=== PATIENT | female | born 1935 | race Caucasian/White ===

== ENCOUNTER 2021-03-02 16:45 | Inpatient (IN) ==
[2021-03-02 17:37] LABS: Basophils # 0.1 10*3/uL (0.0-0.2); Basophils % 0.3 % (0.0-0.8); Eosinophils # 0.4 10*3/uL (0.0-0.87); Eosinophils % 2.1 % (0.00-10.9); Hematocrit 37.7 VOL% (35.7-47.0); Hemoglobin 12.2 GM/DL (12.0-16.0); Immature Granulocytes % 1.4 %; Immature Granulocytes Absolute 0.26 #; Lymphocytes # 0.6 10*3/uL (1.4-4.0); Lymphocytes % 2.9 % (21.3-54.2); Mean Corpuscular HGB Conc 32.4 GM/DL (32-36); Mean Corpuscular Volume 82.1 FL (87-102); Mean Platelet Volume 10.7 FL (9.6-12.0); Monocytes % 3.7 % (1.7-12.7); Neutrophils % 89.6 % (38.7-73.9); Platelet Count 205 T/CUMM (130-400); Red Blood Count 4.59 MC/CUMM (3.8-5.5); White Blood Count 19.1 T/CUMM (4-12)
[2021-03-02 17:52] LABS: Bilirubin,Urine Negative (Negative); Blood, Urine Small mg/dL (Negative); Glucose,Urine (UA) Negative (Negative); Ketones,Urine Negative (Negative); Mucus,Urine Occasional /LPF (Occasional); Nitrite,Urine Negative (Negative); Protein,Urine 30 MG/DL; RBC,Urine 23 /HPF (0-4); Squamous Epithelial Cell,Urine Occasional /HPF (0-10); Urine Appearance CLEAR (Clear); Urine Color Yellow (Yellow); Urine Specific Gravity 1.015 (1.001-1.035); Urine Urobilinogen < 2.0 EU/DL (0.2-1.0)
[2021-03-02 17:55] LABS: Albumin 2.2 G/DL (3.4-5.0); Bilirubin,Total 1.1 MG/DL (0.2-1.0); Calcium 8.4 MG/DL (8.5-10.1); Osmolality,Calculated 284.4 MOS/KG (273-304); Potassium 3.9 MMOL/L (3.5-5.1); Total Protein 5.1 G/DL (6.4-8.2)
[2021-03-02 19:36] LABS: Band Neutrophils 1 % (0-10); Eosinophils 4 % (0-10); Hypochromasia 1+; Lymphocytes 1 % (20-55); Microcytosis 1+; Segmented Neutrophils 94 % (50-85); Total Cells Counted 100
[2021-03-02 19:37] LABS: Platelet Estimate Normal
[2021-03-02] MEDS ORDERED: guaiFENesin/DM ER 600-30 MG TABLET PO PRN (19:59)
[2021-03-02] MEDS ORDERED: DEXTROSE 50% 25 GM/50 ML VIAL IV PRN (19:59)
[2021-03-02] MEDS ORDERED: GLUCAGON 1 MG VIAL IM PRN (19:59)
[2021-03-02] MEDS: AZITHROMYCIN INJ 250 MG in SODIUM CHLORIDE 0.9% 250 ML IV SCH (20:45)
[2021-03-02] MEDS: ONDANSETRON 4 MG/2 ML VIAL IV PRN (23:30)
[2021-03-02] MEDS: ENOXAPARIN 40 MG/0.4 ML SYRINGE SUBCUT SCH (23:42)
[2021-03-02] MEDS: NITROFURANTOIN MACRO/MONO 100 MG CAPSULE PO SCH (23:52)
[2021-03-03 06:52] LABS: Basophils % 0.3 % (0.0-0.8); Eosinophils # 1.4 10*3/uL (0.0-0.87); Eosinophils % 9.5 % (0.00-10.9); Hematocrit 33.8 VOL% (35.7-47.0); Hemoglobin 10.8 GM/DL (12.0-16.0); Immature Granulocytes % 1.1 %; Immature Granulocytes Absolute 0.16 #; Lymphocytes # 1.4 10*3/uL (1.4-4.0); Lymphocytes % 9.9 % (21.3-54.2); Mean Corpuscular Volume 83.9 FL (87-102); Mean Platelet Volume 11.5 FL (9.6-12.0); Monocytes % 5.8 % (1.7-12.7); Neutrophils % 73.4 % (38.7-73.9); Platelet Count 187 T/CUMM (130-400); Red Blood Count 4.03 MC/CUMM (3.8-5.5); White Blood Count 14.4 T/CUMM (4-12)
[2021-03-03 07:21] LABS: Osmolality,Calculated 277.7 MOS/KG (273-304); Potassium 4.1 MMOL/L (3.5-5.1); Thyroid Stimulating Hormone 1.34 uIU/ml (0.358-3.74)
[2021-03-03] MEDS ORDERED: MECLIZINE 25 MG TABLET PO PRN (10:53)
[2021-03-03] MEDS: METOPROLOL SUCCINATE XL 25 MG TABLET PO SCH (12:03)
[2021-03-03] MEDS: LEVOTHYROXINE 50 MCG TABLET PO SCH (12:03)
[2021-03-03] MEDS: PANTOPRAZOLE 40 MG TABLET PO SCH (12:03)
[2021-03-03] MEDS: NITROFURANTOIN MACRO/MONO 100 MG CAPSULE PO SCH ×2 (12:03→21:23)
[2021-03-03] MEDS: AZITHROMYCIN INJ 250 MG in SODIUM CHLORIDE 0.9% 250 ML IV SCH (21:20)
[2021-03-03] MEDS: ESTRADIOL 10 MCG VAG SCH (21:23)
[2021-03-03] MEDS: ENOXAPARIN 40 MG/0.4 ML SYRINGE SUBCUT SCH (21:23)
[2021-03-03] MEDS: SUMAtriptan 25 MG TABLET PO PRN (21:23)
[2021-03-04] MEDS: LEVOTHYROXINE 50 MCG TABLET PO SCH (06:21)
[2021-03-04] MEDS ORDERED: LEVOTHYROXINE 50 MCG TABLET PO SCH (06:30)
[2021-03-04] MEDS: SUMAtriptan 25 MG TABLET PO PRN (08:20)
[2021-03-04] MEDS: METOPROLOL SUCCINATE XL 25 MG TABLET PO SCH (08:20)
[2021-03-04] MEDS: PANTOPRAZOLE 40 MG TABLET PO SCH (08:20)
[2021-03-04] MEDS: NITROFURANTOIN MACRO/MONO 100 MG CAPSULE PO SCH ×2 (08:20→21:34)
[2021-03-04] MEDS ORDERED: ESCITALOPRAM 10 MG TABLET PO SCH (09:00)
[2021-03-04] MEDS ORDERED: LORazepam 1 MG TABLET PO ONE (14:00)
[2021-03-04] MEDS: AZITHROMYCIN 250 MG TABLET PO SCH (16:48)
[2021-03-04] MEDS: ESTRADIOL 10 MCG VAG SCH (21:33)
[2021-03-04] MEDS: ENOXAPARIN 40 MG/0.4 ML SYRINGE SUBCUT SCH (21:34)
[2021-03-05] MEDS: LEVOTHYROXINE 50 MCG TABLET PO SCH (05:57)
[2021-03-05 08:43] LABS: Basophils % 0.3 % (0.0-0.8); Eosinophils # 2.2 10*3/uL (0.0-0.87); Eosinophils % 17.7 % (0.00-10.9); Hematocrit 34.9 VOL% (35.7-47.0); Hemoglobin 10.9 GM/DL (12.0-16.0); Immature Granulocytes % 0.9 %; Immature Granulocytes Absolute 0.12 #; Lymphocytes # 1.2 10*3/uL (1.4-4.0); Lymphocytes % 9.6 % (21.3-54.2); Mean Corpuscular HGB Conc 31.2 GM/DL (32-36); Mean Corpuscular Volume 84.9 FL (87-102); Mean Platelet Volume 11.6 FL (9.6-12.0); Monocytes % 5.1 % (1.7-12.7); Neutrophils % 66.4 % (38.7-73.9); Platelet Count 174 T/CUMM (130-400); Red Blood Count 4.11 MC/CUMM (3.8-5.5); Red Cell Distribution Width 14.5 % (9.3-17.3); White Blood Count 12.7 T/CUMM (4-12)
[2021-03-05 08:55] LABS: Calcium 8.2 MG/DL (8.5-10.1); Osmolality,Calculated 278.8 MOS/KG (273-304)
[2021-03-05 08:59] LABS: Risk Ratio 6.65; VLDL CHOLESTEROL 25.6 MG/DL
[2021-03-05] MEDS: METOPROLOL SUCCINATE XL 25 MG TABLET PO SCH (09:00)
[2021-03-05] MEDS: NITROFURANTOIN MACRO/MONO 100 MG CAPSULE PO SCH ×2 (09:01→21:14)
[2021-03-05] MEDS: ASPIRIN CHEW 81 MG TABLET PO SCH (09:01)
[2021-03-05] MEDS: AZITHROMYCIN 250 MG TABLET PO SCH (09:01)
[2021-03-05] MEDS: PANTOPRAZOLE 40 MG TABLET PO SCH (09:01)
[2021-03-05 09:09] LABS: Atypical Lymphocytes Few; Eosinophils 17 % (0-10); Hypochromasia 1+; Lymphocytes 11 % (20-55); Microcytosis 1+; Segmented Neutrophils 69 % (50-85); Total Cells Counted 100
[2021-03-05 09:10] LABS: Ovalocytes Slight; Platelet Estimate Adequate
[2021-03-05] MEDS ORDERED: SODIUM CHLORIDE 0.45% 1,000 ML IV SCH (16:00)
[2021-03-05] MEDS: ONDANSETRON 4 MG/2 ML VIAL IV PRN ×2 (16:54→23:53)
[2021-03-05] MEDS: CLINDAMYCIN INJ 600 MG/50 ML PREMIX IV SCH (16:55)
[2021-03-05] MEDS: ATORVASTATIN 40 MG TABLET PO SCH (21:14)
[2021-03-05] MEDS: ENOXAPARIN 40 MG/0.4 ML SYRINGE SUBCUT SCH (21:15)
[2021-03-05] MEDS: ESTRADIOL 10 MCG VAG SCH (23:44)
[2021-03-06] MEDS: CLINDAMYCIN INJ 600 MG/50 ML PREMIX IV SCH ×3 (01:03→17:28)
[2021-03-06 06:33] LABS: Basophils % 0.3 % (0.0-0.8); Eosinophils # 1.9 10*3/uL (0.0-0.87); Eosinophils % 13.6 % (0.00-10.9); Hematocrit 32.3 VOL% (35.7-47.0); Hemoglobin 10.1 GM/DL (12.0-16.0); Immature Granulocytes % 0.9 %; Immature Granulocytes Absolute 0.12 #; Lymphocytes # 1.4 10*3/uL (1.4-4.0); Lymphocytes % 10.3 % (21.3-54.2); Mean Corpuscular HGB Conc 31.3 GM/DL (32-36); Mean Corpuscular Volume 84.3 FL (87-102); Monocytes % 5.1 % (1.7-12.7); Neutrophils % 69.8 % (38.7-73.9); Platelet Count 188 T/CUMM (130-400); Red Blood Count 3.83 MC/CUMM (3.8-5.5); Red Cell Distribution Width 14.2 % (9.3-17.3); White Blood Count 13.8 T/CUMM (4-12)
[2021-03-06 06:47] LABS: Band Neutrophils 1 % (0-10); Eosinophils 13 % (0-10); Hypochromasia 1+; Lymphocytes 10 % (20-55); Microcytosis 1+; Segmented Neutrophils 70 % (50-85); Total Cells Counted 100
[2021-03-06 06:48] LABS: Ovalocytes Slight; Platelet Estimate Adequate
[2021-03-06] MEDS: LEVOTHYROXINE 50 MCG TABLET PO SCH (07:00)
[2021-03-06 07:34] LABS: Calcium 8.5 MG/DL (8.5-10.1); Osmolality,Calculated 279.8 MOS/KG (273-304); Potassium 4.3 MMOL/L (3.5-5.1)
[2021-03-06] MEDS: PANTOPRAZOLE 40 MG TABLET PO SCH (10:11)
[2021-03-06] MEDS: CLOPIDOGREL 75 MG TABLET PO SCH (10:11)
[2021-03-06] MEDS: METOPROLOL SUCCINATE XL 25 MG TABLET PO SCH (10:11)
[2021-03-06] MEDS: ASPIRIN CHEW 81 MG TABLET PO SCH (10:11)
[2021-03-06] MEDS: NITROFURANTOIN MACRO/MONO 100 MG CAPSULE PO SCH ×2 (10:11→20:58)
[2021-03-06] MEDS: ATORVASTATIN 40 MG TABLET PO SCH (20:59)
[2021-03-06] MEDS ORDERED: GABAPENTIN 100 MG CAPSULE PO SCH (21:00)
[2021-03-06] MEDS: ENOXAPARIN 40 MG/0.4 ML SYRINGE SUBCUT SCH (21:00)
[2021-03-06] MEDS: ESTRADIOL 10 MCG VAG SCH (22:44)
[2021-03-07] MEDS: CLINDAMYCIN INJ 600 MG/50 ML PREMIX IV SCH ×2 (00:32→09:40)
[2021-03-07] MEDS: LEVOTHYROXINE 50 MCG TABLET PO SCH (06:21)
[2021-03-07] MEDS: CLOPIDOGREL 75 MG TABLET PO SCH (09:40)
[2021-03-07] MEDS: METOPROLOL SUCCINATE XL 25 MG TABLET PO SCH (09:40)
[2021-03-07] MEDS: NITROFURANTOIN MACRO/MONO 100 MG CAPSULE PO SCH (09:40)
[2021-03-07] MEDS: ASPIRIN CHEW 81 MG TABLET PO SCH (09:40)
[2021-03-07] MEDS: PANTOPRAZOLE 40 MG TABLET PO SCH (10:31)
[2021-03-07 12:12] VITALS: BP 100/53
== END 2021-03-07 12:31 | DRG 64 ==
LOC: EDUNIT# → EDBD → N.ED 16:45 → N.EDINP 16:45 → SUATTDRO 19:59 → N.EDINP 21:55 → N.5E 22:56 → SUATTDRO 03-06 10:44
PROVIDERS: ADMIT Internal Medicine; ATTEND Internal Medicine

== ENCOUNTER 2021-03-11 14:07 | Inpatient (IN) ==
[2021-03-11 15:06] LABS: Basophils % 0.2 % (0.0-0.8); Eosinophils # 0.8 10*3/uL (0.0-0.87); Eosinophils % 6.8 % (0.00-10.9); Hematocrit 18.3 VOL% (35.7-47.0); Immature Granulocytes % 4.2 %; Lymphocytes # 3.4 10*3/uL (1.4-4.0); Lymphocytes % 28.8 % (21.3-54.2); Mean Corpuscular HGB Conc 31.1 GM/DL (32-36); Mean Corpuscular Volume 85.5 FL (87-102); Mean Platelet Volume 11.5 FL (9.6-12.0); Monocytes % 10.4 % (1.7-12.7); NRBC # 0.05 10*3/uL; Neutrophils % 49.6 % (38.7-73.9); Platelet Count 301 T/CUMM (130-400); Red Blood Count 2.14 MC/CUMM (3.8-5.5)
[2021-03-11 15:09] LABS: Hemoglobin 5.7 GM/DL (12.0-16.0)
[2021-03-11] MEDS ORDERED: SODIUM CHLORIDE 0.9% 1,000 ML IV PRN ×2 (15:10→18:00)
[2021-03-11 15:16] LABS: Alanine Aminotransferase 30 U/L (13-56); Albumin 1.4 G/DL (3.4-5.0); Alkaline Phosphatase 39 U/L (45-117); Amylase 18 U/L (25-115); Aspartate Amino Transferase 23 U/L (0-37); Bilirubin,Total < 0.39 MG/DL (0.2-1.0); Blood Urea Nitrogen 52 MG/DL (7-18); Calcium 9.2 MG/DL (8.5-10.1); Carbon Dioxide 31 MMOL/L (21-32); Glucose 148 MG/DL (74-106); Osmolality,Calculated 293.5 MOS/KG (273-304); Potassium 4.7 MMOL/L (3.5-5.1); Sodium 139 MMOL/L (136-145)
[2021-03-11 15:20] LABS: Estimated Glom Filtration Rate 0 ML/MIN
[2021-03-11 15:28] LABS: Band Neutrophils 4 % (0-10); Eosinophils 8 % (0-10); INR 1.1; Lymphocytes 24 % (20-55); Segmented Neutrophils 61 % (50-85); Total Cells Counted 100
[2021-03-11 15:29] LABS: Anisocytosis 2+; Hypochromasia Slight; Macrocytosis 1+; Microcytosis 2+; Polychromasia 1+
[2021-03-11 15:30] LABS: Platelet Estimate Normal; Poikilocytosis Slight
[2021-03-11 15:31] LABS: Schistocytes Slight
[2021-03-11] MEDS ORDERED: SODIUM CHLORIDE 0.9% 1,000 ML IV STA ×2 (15:39→15:40)
[2021-03-11 15:42] LABS: Partial Thromboplastin Time < 20.0 SECS (23.9-33.8)
[2021-03-11] MEDS ORDERED: ALBUTEROL 2.5 MG/3 ML NEB RESP TX PRN (16:29)
[2021-03-11] MEDS: SODIUM CHLORIDE 0.9% 1,000 ML IV SCH ×2 (17:05→19:13)
[2021-03-11] MEDS ORDERED: SODIUM CHLORIDE 0.9% 1,000 ML IV ONE ×2 (17:43→17:59)
[2021-03-11 17:49] LABS: Hematocrit 18.5 VOL% (35.7-47.0); Hemoglobin 6.8 GM/DL (12.0-16.0)
[2021-03-11] MEDS ORDERED: NOREPINEPHRINE 4 MG/4 ML VIAL IV ONE (18:02)
[2021-03-11] MEDS: NOREPINEPHRINE 8 MG in SODIUM CHLORIDE 0.9% 242 ML IV PRN (18:09)
[2021-03-11] MEDS: PANTOPRAZOLE INJ 200 MG in SODIUM CHLORIDE 0.9% 250 ML IV SCH (19:30)
[2021-03-11] MEDS: ATORVASTATIN 40 MG TABLET PO SCH (20:39)
[2021-03-11] MEDS ORDERED: PROMETHAZINE 25 MG/1 ML VIAL IM PRN (23:07)
[2021-03-11 23:12] LABS: Hematocrit 16.6 VOL% (35.7-47.0); Hemoglobin 5.4 GM/DL (12.0-16.0)
[2021-03-11] MEDS: ONDANSETRON 4 MG/2 ML VIAL IV PRN (23:14)
[2021-03-12] MEDS: SODIUM CHLORIDE 0.9% 1,000 ML IV SCH ×3 (00:29→11:00)
[2021-03-12 05:53] LABS: Calcium 7.9 MG/DL (8.5-10.1); Osmolality,Calculated 294.3 MOS/KG (273-304); Potassium 4.7 MMOL/L (3.5-5.1)
[2021-03-12] MEDS: LEVOTHYROXINE 50 MCG TABLET PO SCH (06:04)
[2021-03-12] MEDS: NOREPINEPHRINE 8 MG in SODIUM CHLORIDE 0.9% 242 ML IV PRN (06:14)
[2021-03-12 07:07] LABS: Mean Platelet Volume 10.8 FL (9.6-12.0); Red Blood Count 2.12 MC/CUMM (3.8-5.5)
[2021-03-12 07:14] LABS: Basophils % 0.2 % (0.0-0.8); Eosinophils # 0.2 10*3/uL (0.0-0.87); Eosinophils % 1.3 % (0.00-10.9); Hematocrit 19.4 VOL% (35.7-47.0); Immature Granulocytes % 5.1 %; Immature Granulocytes Absolute 0.65 #; Lymphocytes # 2.6 10*3/uL (1.4-4.0); Lymphocytes % 20.3 % (21.3-54.2); Mean Corpuscular HGB Conc 33.5 GM/DL (32-36); Mean Corpuscular Volume 91.5 FL (87-102); Monocytes % 10.6 % (1.7-12.7); NRBC # 0.19 10*3/uL; Neutrophils % 62.5 % (38.7-73.9); Red Cell Distribution Width 14.7 % (9.3-17.3); White Blood Count 12.7 T/CUMM (4-12)
[2021-03-12 07:16] LABS: Hemoglobin 6.5 GM/DL (12.0-16.0); Platelet Count 195 T/CUMM (130-400)
[2021-03-12 07:28] LABS: Band Neutrophils 2 % (0-10); Eosinophils 1 % (0-10); Hypochromasia 2+; Lymphocytes 21 % (20-55); Microcytosis 1+; Platelet Estimate Adequate; Segmented Neutrophils 67 % (50-85); Total Cells Counted 100
[2021-03-12] MEDS ORDERED: MAGNESIUM SULF RIDER 2 GM/50 ML PREMIX IV ONE (07:30)
[2021-03-12] MEDS: ESCITALOPRAM 10 MG TABLET PO SCH (08:24)
[2021-03-12] MEDS ORDERED: MAGNESIUM SULF RIDER 2 GM/50 ML PREMIX IV PRN (08:30)
[2021-03-12] MEDS ORDERED: MAGNESIUM SULF RIDER 4 GM/100 ML PREMIX IV PRN (08:30)
[2021-03-12] MEDS ORDERED: CALCIUM GLUCONATE 1,000 MG in SODIUM CHLORIDE 0.9% 100 ML IV ONE (08:30)
[2021-03-12 10:14] LABS: Hematocrit 22.1 VOL% (35.7-47.0); Hemoglobin 7.5 GM/DL (12.0-16.0)
[2021-03-12 16:39] LABS: Hematocrit 24.2 VOL% (35.7-47.0); Hemoglobin 8.2 GM/DL (12.0-16.0)
[2021-03-12] MEDS: PANTOPRAZOLE INJ 200 MG in SODIUM CHLORIDE 0.9% 250 ML IV SCH (20:30)
[2021-03-12] MEDS: ATORVASTATIN 40 MG TABLET PO SCH (21:08)
[2021-03-12 23:00] LABS: Hematocrit 27.2 VOL% (35.7-47.0); Hemoglobin 8.9 GM/DL (12.0-16.0)
[2021-03-13 05:40] LABS: Hematocrit 24.5 VOL% (35.7-47.0); Hemoglobin 7.9 GM/DL (12.0-16.0)
[2021-03-13 05:56] LABS: Calcium 7.8 MG/DL (8.5-10.1); Potassium 3.9 MMOL/L (3.5-5.1)
[2021-03-13 06:16] LABS: Basophils % 0.3 % (0.0-0.8); Eosinophils # 0.6 10*3/uL (0.0-0.87); Eosinophils % 8.6 % (0.00-10.9); Hematocrit 24.2 VOL% (35.7-47.0); Hemoglobin 7.9 GM/DL (12.0-16.0); Immature Granulocytes % 6.2 %; Immature Granulocytes Absolute 0.44 #; Lymphocytes # 1.4 10*3/uL (1.4-4.0); Lymphocytes % 20.3 % (21.3-54.2); Mean Corpuscular HGB Conc 32.6 GM/DL (32-36); Mean Corpuscular Volume 97.6 FL (87-102); Monocytes % 12.3 % (1.7-12.7); NRBC # 0.26 10*3/uL; Neutrophils % 52.3 % (38.7-73.9); Platelet Count 154 T/CUMM (130-400); Red Blood Count 2.48 MC/CUMM (3.8-5.5); Red Cell Distribution Width 16.3 % (9.3-17.3); White Blood Count 7.1 T/CUMM (4-12)
[2021-03-13] MEDS: LEVOTHYROXINE 50 MCG TABLET PO SCH (06:18)
[2021-03-13 06:56] LABS: Band Neutrophils 2 % (0-10); Eosinophils 9 % (0-10); Lymphocytes 17 % (20-55); Nucleated Red Blood Cells 4 (0-5); Platelet Estimate Adequate; Segmented Neutrophils 67 % (50-85); Total Cells Counted 100
[2021-03-13 06:57] LABS: Hypochromasia 1+; Microcytosis 1+
[2021-03-13] MEDS: ESCITALOPRAM 10 MG TABLET PO SCH (08:29)
[2021-03-13 12:18] LABS: Hematocrit 28.8 VOL% (35.7-47.0); Hemoglobin 9.4 GM/DL (12.0-16.0)
[2021-03-13 12:40] LABS: Hematocrit 28.6 VOL% (35.7-47.0); Hemoglobin 9.5 GM/DL (12.0-16.0)
[2021-03-13 16:50] LABS: Hematocrit 22.7 VOL% (35.7-47.0)
[2021-03-13 16:51] LABS: Hemoglobin 7.5 GM/DL (12.0-16.0)
[2021-03-13] MEDS ORDERED: SODIUM CHLORIDE 0.9% 1,000 ML IV PRN ×3 (17:04→18:04)
[2021-03-13 17:16] LABS: HIV Antigen/Antibody Result Nonreactive (Nonreactive); Hepatitis B Surface Ag Quant < 0.10 Index; Hepatitis B Surface Ag Result Non-Reactive (NonReactive); Hepatitis C Virus Ab Quant 0.05 Index; Hepatitis C Virus Ab Result Non-Reactive (NonReactive)
[2021-03-13] MEDS ORDERED: NOREPINEPHRINE 4 MG/4 ML VIAL IV ONE ×2 (17:36)
[2021-03-13] MEDS: NOREPINEPHRINE 8 MG in SODIUM CHLORIDE 0.9% 242 ML IV PRN (17:40)
[2021-03-13] MEDS ORDERED: SODIUM CHLORIDE 0.9% 1,000 ML IV ONE (18:01)
[2021-03-13] MEDS: SODIUM CHLORIDE 0.9% 1,000 ML IV SCH (18:02)
[2021-03-13] MEDS ORDERED: FUROSEMIDE 20 MG/2 ML VIAL IV PRN (18:04)
[2021-03-13] MEDS: PANTOPRAZOLE INJ 200 MG in SODIUM CHLORIDE 0.9% 250 ML IV SCH ×2 (19:17→22:25)
[2021-03-13] MEDS: ATORVASTATIN 40 MG TABLET PO SCH (22:24)
[2021-03-14 00:53] LABS: Hematocrit 27.5 VOL% (35.7-47.0)
[2021-03-14] MEDS: SODIUM CHLORIDE 0.9% 1,000 ML IV SCH (04:03)
[2021-03-14] MEDS ORDERED: FUROSEMIDE 40 MG/4 ML VIAL ONE (04:09)
[2021-03-14] MEDS ORDERED: ALBUMIN 5% 12.5 GM/250 ML VIAL IV ONE (04:19)
[2021-03-14 06:21] LABS: Calcium 6.8 MG/DL (8.5-10.1); Osmolality,Calculated 286.4 MOS/KG (273-304); Potassium 4.5 MMOL/L (3.5-5.1)
[2021-03-14] MEDS: ONDANSETRON 4 MG/2 ML VIAL IV PRN (06:24)
[2021-03-14] MEDS: LEVOTHYROXINE 50 MCG TABLET PO SCH (06:25)
[2021-03-14 06:26] LABS: Albumin 1.8 G/DL (3.4-5.0); Bilirubin,Direct 0.17 MG/DL (0.0-0.20); Bilirubin,Indirect 0.6 MG/DL (0.0-1.0); Bilirubin,Total 0.8 MG/DL (0.2-1.0); Calcium 6.8 MG/DL (8.5-10.1); Osmolality,Calculated 288.3 MOS/KG (273-304); Potassium 4.5 MMOL/L (3.5-5.1); Total Protein 3.4 G/DL (6.4-8.2)
[2021-03-14] MEDS: NOREPINEPHRINE 8 MG in SODIUM CHLORIDE 0.9% 242 ML IV PRN ×2 (06:38→14:40)
[2021-03-14] MEDS: ESCITALOPRAM 10 MG TABLET PO SCH (08:56)
[2021-03-14 09:14] LABS: Basophils % 0.1 % (0.0-0.8); Eosinophils # 0.1 10*3/uL (0.0-0.87); Eosinophils % 0.5 % (0.00-10.9); Immature Granulocytes % 5.6 %; Lymphocytes # 2.2 10*3/uL (1.4-4.0); Lymphocytes % 17.6 % (21.3-54.2); Mean Corpuscular HGB Conc 33.1 GM/DL (32-36); Mean Platelet Volume 10.3 FL (9.6-12.0); Monocytes % 8.6 % (1.7-12.7); NRBC # 1.26 10*3/uL; Neutrophils % 67.6 % (38.7-73.9); Platelet Count 191 T/CUMM (130-400); Red Blood Count 1.73 MC/CUMM (3.8-5.5); Red Cell Distribution Width 16.2 % (9.3-17.3); White Blood Count 12.4 T/CUMM (4-12)
[2021-03-14 09:17] LABS: Hemoglobin 5.5 GM/DL (12.0-16.0)
[2021-03-14 09:18] LABS: Hematocrit 16.6 VOL% (35.7-47.0)
[2021-03-14 09:34] LABS: Eosinophils 1 % (0-10); Hypochromasia 2+; Lymphocytes 14 % (20-55); Macrocytosis 1+; Nucleated Red Blood Cells 13 (0-5); Platelet Estimate Adequate; Polychromasia 1+; Segmented Neutrophils 78 % (50-85); Total Cells Counted 100
[2021-03-14 09:58] LABS: Hematocrit 16.2 VOL% (35.7-47.0); Hemoglobin 5.1 GM/DL (12.0-16.0)
[2021-03-14] MEDS ORDERED: SODIUM CHLORIDE 0.9% 1,000 ML IV PRN (10:00)
[2021-03-14] MEDS ORDERED: FUROSEMIDE 20 MG/2 ML VIAL IV ONE (18:02)
[2021-03-14 20:09] LABS: Hematocrit 25.9 VOL% (35.7-47.0); Hemoglobin 8.5 GM/DL (12.0-16.0)
[2021-03-14] MEDS: ATORVASTATIN 40 MG TABLET PO SCH (20:15)
[2021-03-15] MEDS: PANTOPRAZOLE INJ 200 MG in SODIUM CHLORIDE 0.9% 250 ML IV SCH (00:14)
[2021-03-15 03:48] LABS: Basophils % 0.2 % (0.0-0.8); Eosinophils # 0.6 10*3/uL (0.0-0.87); Eosinophils % 6.7 % (0.00-10.9); Hematocrit 21.4 VOL% (35.7-47.0); Immature Granulocytes % 3.1 %; Immature Granulocytes Absolute 0.26 #; Lymphocytes # 1.8 10*3/uL (1.4-4.0); Lymphocytes % 21.2 % (21.3-54.2); Mean Corpuscular HGB Conc 32.7 GM/DL (32-36); Mean Corpuscular Volume 97.7 FL (87-102); Mean Platelet Volume 10.6 FL (9.6-12.0); Monocytes % 13.5 % (1.7-12.7); NRBC # 0.26 10*3/uL; Neutrophils % 55.3 % (38.7-73.9); Platelet Count 143 T/CUMM (130-400); Red Blood Count 2.19 MC/CUMM (3.8-5.5); White Blood Count 8.3 T/CUMM (4-12)
[2021-03-15 04:02] LABS: INR 1.1; PT Patient Result 12.8 SECS (10.5-12.0); Partial Thromboplastin Time 24.5 SECS (23.9-33.8)
[2021-03-15 04:12] LABS: Calcium 6.7 MG/DL (8.5-10.1); Osmolality,Calculated 283.3 MOS/KG (273-304); Potassium 3.4 MMOL/L (3.5-5.1)
[2021-03-15] MEDS: POTASSIUM CHLORIDE RIDER 10 MEQ/100 ML PREMIX IV PRN ×3 (05:53→08:12)
[2021-03-15] MEDS: LEVOTHYROXINE 50 MCG TABLET PO SCH (06:13)
[2021-03-15] MEDS: ESCITALOPRAM 10 MG TABLET PO SCH (08:12)
[2021-03-15] MEDS ORDERED: FUROSEMIDE 20 MG/2 ML VIAL IV ONE (09:31)
[2021-03-15 11:28] LABS: Hematocrit 27.9 VOL% (35.7-47.0); Hemoglobin 9.6 GM/DL (12.0-16.0)
[2021-03-15 19:51] LABS: Hematocrit 29.6 VOL% (35.7-47.0)
[2021-03-15 19:52] LABS: Hemoglobin 9.6 GM/DL (12.0-16.0)
[2021-03-15] MEDS: ATORVASTATIN 40 MG TABLET PO SCH (20:57)
[2021-03-15] MEDS: PANTOPRAZOLE 40 MG TABLET PO SCH (20:57)
[2021-03-15] MEDS ORDERED: PANTOPRAZOLE 40 MG VIAL IV SCH (21:00)
[2021-03-16 03:57] LABS: Basophils % 0.3 % (0.0-0.8); Eosinophils # 0.7 10*3/uL (0.0-0.87); Eosinophils % 8.9 % (0.00-10.9); Hematocrit 26.3 VOL% (35.7-47.0); Hemoglobin 9.1 GM/DL (12.0-16.0); Immature Granulocytes Absolute 0.15 #; Lymphocytes # 1.9 10*3/uL (1.4-4.0); Lymphocytes % 25.3 % (21.3-54.2); Mean Corpuscular HGB Conc 34.6 GM/DL (32-36); Mean Corpuscular Volume 95.3 FL (87-102); Mean Platelet Volume 10.4 FL (9.6-12.0); Monocytes % 10.5 % (1.7-12.7); NRBC # 0.06 10*3/uL; Platelet Count 114 T/CUMM (130-400); Red Blood Count 2.76 MC/CUMM (3.8-5.5); Red Cell Distribution Width 20.3 % (9.3-17.3); White Blood Count 7.4 T/CUMM (4-12)
[2021-03-16 04:02] LABS: Albumin 1.9 G/DL (3.4-5.0); Bilirubin,Total 0.7 MG/DL (0.2-1.0); Calcium 6.8 MG/DL (8.5-10.1); Potassium 3.9 MMOL/L (3.5-5.1); Total Protein 3.6 G/DL (6.4-8.2)
[2021-03-16 04:05] LABS: Osmolality,Calculated 276.5 MOS/KG (273-304)
[2021-03-16] MEDS: LEVOTHYROXINE 50 MCG TABLET PO SCH (06:18)
[2021-03-16] MEDS: PANTOPRAZOLE 40 MG TABLET PO SCH ×2 (09:18→20:13)
[2021-03-16] MEDS: ESCITALOPRAM 10 MG TABLET PO SCH (09:20)
[2021-03-16 11:37] LABS: Hemoglobin 10.4 GM/DL (12.0-16.0)
[2021-03-16 19:43] LABS: Hematocrit 27.9 VOL% (35.7-47.0); Hemoglobin 9.1 GM/DL (12.0-16.0)
[2021-03-16] MEDS: ATORVASTATIN 40 MG TABLET PO SCH (20:13)
[2021-03-17 03:50] LABS: Basophils % 0.5 % (0.0-0.8); Eosinophils # 0.6 10*3/uL (0.0-0.87); Eosinophils % 9.4 % (0.00-10.9); Hematocrit 26.9 VOL% (35.7-47.0); Hemoglobin 9.1 GM/DL (12.0-16.0); Immature Granulocytes % 1.2 %; Immature Granulocytes Absolute 0.07 #; Lymphocytes # 1.6 10*3/uL (1.4-4.0); Lymphocytes % 26.6 % (21.3-54.2); Mean Corpuscular HGB Conc 33.8 GM/DL (32-36); Mean Platelet Volume 10.6 FL (9.6-12.0); Monocytes % 12.1 % (1.7-12.7); Neutrophils % 50.2 % (38.7-73.9); Platelet Count 135 T/CUMM (130-400); Red Blood Count 2.69 MC/CUMM (3.8-5.5); Red Cell Distribution Width 21.2 % (9.3-17.3); White Blood Count 5.9 T/CUMM (4-12)
[2021-03-17 04:12] LABS: Calcium 7.3 MG/DL (8.5-10.1); Osmolality,Calculated 278.4 MOS/KG (273-304); Potassium 3.9 MMOL/L (3.5-5.1); Total Protein 3.9 G/DL (6.4-8.2)
[2021-03-17] MEDS: LEVOTHYROXINE 50 MCG TABLET PO SCH (06:16)
[2021-03-17] MEDS: PANTOPRAZOLE 40 MG TABLET PO SCH ×2 (10:33→20:08)
[2021-03-17] MEDS: ESCITALOPRAM 10 MG TABLET PO SCH (10:34)
[2021-03-17] MEDS ORDERED: ALBUMIN 25% 25 GM/100 ML VIAL IV ONE (10:39)
[2021-03-17] MEDS: FUROSEMIDE 20 MG/2 ML VIAL IV SCH (11:01)
[2021-03-17] MEDS: POLYETHYLENE GLYCOL POWDER 17 GM PACK PO SCH (12:52)
[2021-03-17] MEDS: ATORVASTATIN 40 MG TABLET PO SCH (20:08)
[2021-03-17] MEDS: GABAPENTIN 100 MG CAPSULE PO SCH (20:09)
[2021-03-18 05:55] LABS: Basophils % 0.7 % (0.0-0.8); Eosinophils # 0.7 10*3/uL (0.0-0.87); Eosinophils % 12.1 % (0.00-10.9); Hematocrit 26.9 VOL% (35.7-47.0); Hemoglobin 9.3 GM/DL (12.0-16.0); Immature Granulocytes % 0.5 %; Immature Granulocytes Absolute 0.03 #; Lymphocytes # 1.6 10*3/uL (1.4-4.0); Lymphocytes % 28.2 % (21.3-54.2); Mean Corpuscular HGB Conc 34.6 GM/DL (32-36); Mean Corpuscular Volume 103.5 FL (87-102); Mean Platelet Volume 10.8 FL (9.6-12.0); Monocytes % 11.8 % (1.7-12.7); Neutrophils % 46.7 % (38.7-73.9); Platelet Count 161 T/CUMM (130-400); Red Cell Distribution Width 21.8 % (9.3-17.3); White Blood Count 5.6 T/CUMM (4-12)
[2021-03-18 06:10] LABS: Calcium 7.8 MG/DL (8.5-10.1); Osmolality,Calculated 274.5 MOS/KG (273-304)
[2021-03-18] MEDS: LEVOTHYROXINE 50 MCG TABLET PO SCH (06:16)
[2021-03-18 06:21] LABS: Eosinophils 12 % (0-10); Lymphocytes 23 % (20-55); Platelet Estimate Adequate; Segmented Neutrophils 53 % (50-85); Total Cells Counted 100
[2021-03-18 06:22] LABS: Hypochromasia 1+
[2021-03-18] MEDS: METOPROLOL SUCCINATE XL 25 MG TABLET PO SCH (09:55)
[2021-03-18] MEDS: POLYETHYLENE GLYCOL POWDER 17 GM PACK PO SCH (09:55)
[2021-03-18] MEDS: ASPIRIN CHEW 81 MG TABLET PO SCH (09:55)
[2021-03-18] MEDS: PANTOPRAZOLE 40 MG TABLET PO SCH ×2 (09:55→20:48)
[2021-03-18] MEDS: ESCITALOPRAM 10 MG TABLET PO SCH (09:55)
[2021-03-18] MEDS: ASCORBIC ACID 500 MG TABLET PO SCH (09:55)
[2021-03-18] MEDS: FUROSEMIDE 20 MG/2 ML VIAL IV SCH (09:56)
[2021-03-18] MEDS: GABAPENTIN 100 MG CAPSULE PO SCH (20:48)
[2021-03-18] MEDS: ATORVASTATIN 40 MG TABLET PO SCH (20:48)
[2021-03-19] MEDS: LEVOTHYROXINE 50 MCG TABLET PO SCH (06:49)
[2021-03-19] MEDS: METOPROLOL SUCCINATE XL 25 MG TABLET PO SCH (10:39)
[2021-03-19] MEDS: PANTOPRAZOLE 40 MG TABLET PO SCH ×2 (10:39→22:18)
[2021-03-19] MEDS: POLYETHYLENE GLYCOL POWDER 17 GM PACK PO SCH (10:39)
[2021-03-19] MEDS: FUROSEMIDE 20 MG/2 ML VIAL IV SCH (10:39)
[2021-03-19] MEDS: ASCORBIC ACID 500 MG TABLET PO SCH (10:39)
[2021-03-19] MEDS: ESCITALOPRAM 10 MG TABLET PO SCH (10:39)
[2021-03-19] MEDS: ASPIRIN CHEW 81 MG TABLET PO SCH (10:39)
[2021-03-19] MEDS: SULFAMETHOX/TRIMETHOPRIM 800-160 MG TABLET PO SCH ×2 (12:25→22:18)
[2021-03-19] MEDS: ENOXAPARIN 40 MG/0.4 ML SYRINGE SUBCUT SCH (12:26)
[2021-03-19] MEDS ORDERED: ESTRADIOL 1 MG TABLET VAG SCH (21:00)
[2021-03-19] MEDS ORDERED: ESTRADIOL 10 MCG VAG SCH (21:00)
[2021-03-19] MEDS: ATORVASTATIN 40 MG TABLET PO SCH (22:18)
[2021-03-19] MEDS: GABAPENTIN 100 MG CAPSULE PO SCH (22:18)
[2021-03-20 05:25] LABS: Basophils # 0.1 10*3/uL (0.0-0.2); Basophils % 0.7 % (0.0-0.8); Eosinophils # 0.5 10*3/uL (0.0-0.87); Eosinophils % 7.4 % (0.00-10.9); Hematocrit 27.1 VOL% (35.7-47.0); Hemoglobin 10.3 GM/DL (12.0-16.0); Immature Granulocytes % 0.6 %; Immature Granulocytes Absolute 0.04 #; Lymphocytes # 1.5 10*3/uL (1.4-4.0); Lymphocytes % 21.2 % (21.3-54.2); Mean Corpuscular Volume 101.5 FL (87-102); Mean Platelet Volume 10.9 FL (9.6-12.0); Monocytes % 13.1 % (1.7-12.7); Platelet Count 202 T/CUMM (130-400); Red Blood Count 2.67 MC/CUMM (3.8-5.5); Red Cell Distribution Width 20.6 % (9.3-17.3); White Blood Count 6.9 T/CUMM (4-12)
[2021-03-20 05:48] LABS: Eosinophils 7 % (0-10); Lymphocytes 19 % (20-55); Platelet Estimate Adequate; Segmented Neutrophils 61 % (50-85); Total Cells Counted 100
[2021-03-20 05:57] LABS: Calcium 8.1 MG/DL (8.5-10.1); Potassium 4.1 MMOL/L (3.5-5.1)
[2021-03-20] MEDS: LEVOTHYROXINE 50 MCG TABLET PO SCH (06:19)
[2021-03-20] MEDS ORDERED: MAGNESIUM OXIDE 400 MG TABLET PO SCH (09:00)
[2021-03-20] MEDS ORDERED: FUROSEMIDE 20 MG TABLET PO SCH (09:00)
[2021-03-20] MEDS: SULFAMETHOX/TRIMETHOPRIM 800-160 MG TABLET PO SCH (09:12)
[2021-03-20] MEDS: ESCITALOPRAM 10 MG TABLET PO SCH (09:12)
[2021-03-20] MEDS: ASPIRIN CHEW 81 MG TABLET PO SCH (09:12)
[2021-03-20] MEDS: ASCORBIC ACID 500 MG TABLET PO SCH (09:13)
[2021-03-20] MEDS: PANTOPRAZOLE 40 MG TABLET PO SCH (09:13)
[2021-03-20] MEDS: POLYETHYLENE GLYCOL POWDER 17 GM PACK PO SCH (09:13)
[2021-03-20] MEDS: METOPROLOL SUCCINATE XL 25 MG TABLET PO SCH (09:13)
[2021-03-20] MEDS: ENOXAPARIN 40 MG/0.4 ML SYRINGE SUBCUT SCH (14:38)
[2021-03-20 16:16] VITALS: BP 94/69
== END 2021-03-20 18:40 | disposition home health service (06) | DRG 377 ==
LOC: EDBD → EDUNIT# → N.ED 14:07 → SUATTDRO 15:30 → N.EDINP 15:30 → N.CC 16:50 → N.3E 03-15 18:47
PROVIDERS: ADMIT Internal Medicine; ATTEND Family Medicine